=== PATIENT | male | born 1995 | race Caucasian/White ===

== ENCOUNTER 2024-06-19 11:19 | Emergency (ER) | payer OTHER, SELFPAY ==
[2024-06-19 11:33] VITALS: BP 151/105
--- NOTE | 2024-06-19 11:33 | ED.GENMED ---
History of Present Illness
General
Chief Complaint: Musculo-Skeletal Complaint
Source: patient
Time Seen by Provider: 06/19/24 11:33
History of Present Illness
History of Present Illness:
28-year-old male with no significant past medical history presents to the emergency department for evaluation after stubbing his right great toe on a bookcase 3 days ago, continued pain to the right great toe since that time with difficulty
ambulating secondary to the pain. No other injuries were sustained.
Past History
Past History
ED Past Medical History: None
ED Past Surgical History: None
Social History
Tobacco: Non-smoker
Alcohol: Occasional
Drug: None
Personal: Single
Living: with family
Employment: Employed
Review of Systems
Review of Systems
All Other Systems: ROS reviewed and negative except as documented in HPI and ROS
Phy Exam
Physical Exam
Physical Exam:
GENERAL: Alert , in no apparent distress
EYE: conjunctiva clear
Head: Normocephalic atraumatic
NECK: Supple,
ENT: mmm.
LUNGS: no acute respiratory distress
NEUROLOGICAL: Alert and oriented
SKIN: Warm and dry, skin intact.
MUSCULOSKELETAL: well perfused.
PSYCH: Normal and appropriate interaction.
Scores
Heart Failure Risk
Heart Failure Risk Score: Not Applicable
Heart Score for Chest Pain Patients
STEMI patient?: Not applicable
Withdrawal Assessment of Alcohol
Withdrawal Assessment Completed?: Not applicable
Course
Orders/Labs/Results
Orders:
Orders
06/19/24 11:33
CR Foot - Right Min 3 Views Urgent
Comment:
Reason For Exam: great toe injury
06/19/24 12:46
Oxycodone/Acetaminophen [Percocet 5/325] 1 tablet PO NOW STA
Vital Signs
Initial and Last Documented VS:
Initial Vital Signs
Temp Pulse Resp BP Pulse Ox
98 F 109 16 151/105 98
06/19/24 11:33 06/19/24 11:33 06/19/24 11:33 06/19/24 11:33 06/19/24 11:33
Last Documented Vital Signs
Temp Pulse Resp BP Pulse Ox
98 F 109 16 151/105 98
06/19/24 11:33 06/19/24 11:33 06/19/24 11:33 06/19/24 11:33 06/19/24 11:33
MDM/Problems Addressed
Differential Diagnosis Includes:
Contusion, sprain, fracture
MDM/Problems Addressed:
28-year-old male presenting to the ER for evaluation of right great toe pain following an accidental injury 3 days ago. Continued and worsening pain since. X-ray of the foot ordered. Anticipate discharge home following with outpatient care as
needed.
*Pulse Oximetry
Patient hypoxic: no
*Critical Care Note
Total Time (30-74mins, 75-104mins- exclusive of procedures): Not Applicable
ED Attending Note
-
Portions of this chart may have been created with voice recognition software.� Occasional wrong word or��sound alike� substitutions may have occurred due to the inherent limitations of voice recognition software.
Discharge Plan
Departure
Patient Disposition: Home (Routine Discharge)
Date of Disposition: 06/19/24
Time of Disposition: 12:44
Patient with high blood pressure during this ER visit?: Yes
Discharge Problem:
Contusion of great toe, right
Instructions: Contusion (DC)
Interventions
Interventions:
*Risk Screen - Suicide Last Done: 06/19/24 11:33
*Neglect/Abuse Screening Last Done: 06/19/24 11:33
*Nursing Disposition Last Done: 06/19/24 13:08
Discharge Date and Time
Discharge Date/Time: 06/19/24 13:09
Print Language: MACANESE
[2024-06-19] MEDS: PERCOCET 5/325 1 TABLET PO (13:07)
== END 2024-06-19 13:09 | disposition home or self-care (01) ==
LOC: EMR 11:19
PROVIDERS: EMERGENCY PHYSICIAN Emergency Medicine
DX: S90.111A Contusion of right great toe without damage to nail, initial encounter (principal); W22.8XXA Striking against or struck by other objects, initial encounter; R03.0 Elevated blood-pressure reading, without diagnosis of hypertension
CPT/HCPCS: 99283; 73630